=== PATIENT | male | born 1930 | race Caucasian/White ===

== ENCOUNTER → 2017-08-04 | Outpatient (CLI) | payer MEDICARE, BC ==
[2017-08-04 16:43] LABS: Basophils # (auto) 0 uL; Basophils % (auto) 0.5 % (0.0-2.0); Eosinophils # (auto) 0.1 uL; Eosinophils % (auto) 0.9 % (0.0-7.0); Hemoglobin 15.2 g/dL (13.5-17.5); Lymphocytes # (auto) 1.5 uL; Lymphocytes % (auto) 14.9 % (10.0-50.0); Mean Corpuscular Hemoglobin 29.1 pg (28.0-32.0); Mean Corpuscular Hgb Conc. 33.8 g/dL (32.0-36.0); Mean Corpuscular Volume 86.1 fL (80.0-100.0); Neutrophils # (auto) 7.3 uL; Neutrophils % (auto) 73.7 % (37.0-80.0); Nucleated Red Blood Cells % 0.1 %; Platelet Count (auto) 230 10^3/uL (140-450); Red Blood Cells 5.23 10^6/uL (4.5-5.90); Red Cell Distribution Width 13.3 % (11.8-14.3)
[2017-08-04 17:05] LABS: Albumin 3.8 g/dL (3.4-5.0); BUN/Creatinine Ratio 12.4; Bilirubin, Total 1.7 mg/dL (0.2-1.0); Calcium 8.9 mg/dL (8.5-10.1); Potassium 3.1 mmol/L (3.5-5.1); Total Protein 8.1 g/dL (6.4-8.2)
[2017-08-04 17:07] LABS: Free T4 (Free Thyroxine) 1.21 ng/dL (0.89-1.76); Prostate Specific Antigen 0.68 ng/mL (0.0-4.0)
== END | disposition home or self-care (01) ==
LOC: LAB 16:16
PROVIDERS: ATTEND Internal Medicine
DX: R41.89 Other symptoms and signs involving cognitive functions and awareness (principal); K59.00 Constipation, unspecified; N40.1 Benign prostatic hyperplasia with lower urinary tract symptoms
CPT/HCPCS: 36415; 80053; 82607; 84153; 84439; 84443; 85025

== ENCOUNTER → 2017-10-21 | Outpatient (CLI) | payer MEDICARE, BC ==
[2017-10-21 14:00] LABS: Basophils # (auto) 0.1 uL; Basophils % (auto) 1.1 % (0.0-2.0); Eosinophils # (auto) 0.2 uL; Eosinophils % (auto) 2.8 % (0.0-7.0); Hemoglobin 15.4 g/dL (13.5-17.5); Lymphocytes # (auto) 1.7 uL; Lymphocytes % (auto) 24.5 % (10.0-50.0); Mean Corpuscular Hemoglobin 28.7 pg (28.0-32.0); Mean Corpuscular Hgb Conc. 34.1 g/dL (32.0-36.0); Mean Corpuscular Volume 84.3 fL (80.0-100.0); Monocytes # (auto) 0.8 uL; Monocytes % (auto) 11.1 % (0.0-12.0); Neutrophils # (auto) 4.2 uL; Neutrophils % (auto) 60.5 % (37.0-80.0); Nucleated Red Blood Cells % 0.1 %; Platelet Count (auto) 229 10^3/uL (140-450); Red Blood Cells 5.34 10^6/uL (4.5-5.90); Red Cell Distribution Width 14.1 % (11.8-14.3); White Blood Cell 6.9 10^3/uL (4.4-10.8)
[2017-10-21 14:21] LABS: Albumin 3.7 g/dL (3.4-5.0); BUN/Creatinine Ratio 15.9; Calcium 9.1 mg/dL (8.5-10.1); Potassium 3.4 mmol/L (3.5-5.1)
[2017-10-21 14:24] LABS: Bilirubin, Total 1.1 mg/dL (0.2-1.0); Total Protein 7.5 g/dL (6.4-8.2)
== END | disposition home or self-care (01) ==
LOC: LAB 13:39
PROVIDERS: ATTEND Internal Medicine
DX: I12.9 Hypertensive chronic kidney disease with stage 1 through stage 4 chronic kidney disease, or unspecified chronic kidney disease (principal); N18.3 Chronic kidney disease, stage 3 (moderate); E03.9 Hypothyroidism, unspecified
CPT/HCPCS: 36415; 80053; 84439; 84443; 85025

== ENCOUNTER → 2018-03-13 | Outpatient (CLI) | payer MEDICARE, BC ==
[2018-03-13 08:49] LABS: Basophils # (auto) 0.1 uL; Eosinophils # (auto) 0.4 uL; Eosinophils % (auto) 4.4 % (0.0-7.0); Hematocrit 47.7 % (41.0-53.0); Hemoglobin 16.2 g/dL (13.5-17.5); Lymphocytes # (auto) 1.9 uL; Lymphocytes % (auto) 22.2 % (10.0-50.0); Mean Corpuscular Hgb Conc. 34.1 g/dL (32.0-36.0); Mean Corpuscular Volume 85.2 fL (80.0-100.0); Monocytes # (auto) 0.9 uL; Monocytes % (auto) 10.6 % (0.0-12.0); Neutrophils # (auto) 5.2 uL; Neutrophils % (auto) 61.8 % (37.0-80.0); Nucleated Red Blood Cells % 0.1 %; Platelet Count (auto) 208 10^3/uL (140-450); Red Cell Distribution Width 13.9 % (11.8-14.3); White Blood Cell 8.4 10^3/uL (4.4-10.8)
[2018-03-13 09:32] LABS: Albumin 3.7 g/dL (3.4-5.0); Calcium 9.1 mg/dL (8.5-10.1); Potassium 3.7 mmol/L (3.5-5.1)
[2018-03-13 09:39] LABS: BUN/Creatinine Ratio 18.9; Bilirubin, Total 0.9 mg/dL (0.2-1.0); Total Protein 7.5 g/dL (6.4-8.2)
== END | disposition home or self-care (01) ==
LOC: LAB 08:26
PROVIDERS: ATTEND Internal Medicine
DX: I12.9 Hypertensive chronic kidney disease with stage 1 through stage 4 chronic kidney disease, or unspecified chronic kidney disease (principal); N18.3 Chronic kidney disease, stage 3 (moderate); E03.9 Hypothyroidism, unspecified
CPT/HCPCS: 36415; 80053; 80061; 84439; 84443; 85025

== ENCOUNTER → 2018-07-01 | Outpatient (CLI) | payer MEDICARE, BC ==
[~2018-07-01] MED LIST: ASPI81TA27 PO; CIPR-217 PO; DOCU100T15 PO; GABA100C9 PO; HYDR25TA4 PO; LACT10SO3 PO; LEVO25TA6 PO; METO25TA62 PO; PANT40T PO; POTA10TA51 PO; TAMS0.4C36 PO
[2018-07-01 11:28] LABS: Basophils # (auto) 0 uL; Basophils % (auto) 0.7 % (0.0-2.0); Eosinophils # (auto) 0.4 uL; Eosinophils % (auto) 5.4 % (0.0-7.0); Hematocrit 34.4 % (41.0-53.0); Hemoglobin 11.7 g/dL (13.5-17.5); Lymphocytes # (auto) 1.2 uL; Lymphocytes % (auto) 17.9 % (10.0-50.0); Mean Corpuscular Hemoglobin 29.4 pg (28.0-32.0); Mean Corpuscular Hgb Conc. 33.9 g/dL (32.0-36.0); Mean Corpuscular Volume 86.6 fL (80.0-100.0); Monocytes # (auto) 0.6 uL; Monocytes % (auto) 9.3 % (0.0-12.0); Neutrophils # (auto) 4.4 uL; Neutrophils % (auto) 66.7 % (37.0-80.0); Platelet Count (auto) 211 10^3/uL (140-450); Red Blood Cells 3.97 10^6/uL (4.5-5.90); Red Cell Distribution Width 13.8 % (11.8-14.3); White Blood Cell 6.6 10^3/uL (4.4-10.8)
== END | disposition home or self-care (01) ==
LOC: LAB 10:47
PROVIDERS: ATTEND Internal Medicine
DX: D64.9 Anemia, unspecified (principal)
CPT/HCPCS: 36415; 85025

== ENCOUNTER → 2018-11-24 | Outpatient (CLI) | payer MEDICARE, BC ==
[~2018-11-24] MED LIST changes: +ASPI-404 PO; -ASPI81TA27 PO
[2018-11-24 14:29] LABS: Basophils # (auto) 0 uL; Basophils % (auto) 0.7 % (0.0-2.0); Eosinophils # (auto) 0.2 uL; Eosinophils % (auto) 2.8 % (0.0-7.0); Hematocrit 45.2 % (41.0-53.0); Hemoglobin 15.3 g/dL (13.5-17.5); Lymphocytes # (auto) 1.3 uL; Lymphocytes % (auto) 18.7 % (10.0-50.0); Mean Corpuscular Hemoglobin 29.2 pg (28.0-32.0); Mean Corpuscular Hgb Conc. 33.7 g/dL (32.0-36.0); Mean Corpuscular Volume 86.4 fL (80.0-100.0); Monocytes # (auto) 0.9 uL; Monocytes % (auto) 12.6 % (0.0-12.0); Neutrophils # (auto) 4.6 uL; Neutrophils % (auto) 65.2 % (37.0-80.0); Nucleated Red Blood Cells % 0.2 %; Platelet Count (auto) 194 10^3/uL (140-450); Red Blood Cells 5.23 10^6/uL (4.5-5.90)
[2018-11-24 14:49] LABS: Albumin 3.6 g/dL (3.4-5.0); BUN/Creatinine Ratio 17.3; Potassium 3.3 mmol/L (3.5-5.1); Uric Acid 7.9 mg/dL (3.5-7.2)
[2018-11-24 14:51] LABS: Bilirubin, Total 1.2 mg/dL (0.2-1.0); Total Protein 7.1 g/dL (6.4-8.2)
== END | disposition home or self-care (01) ==
LOC: LAB 14:08
PROVIDERS: ATTEND Internal Medicine
DX: I12.9 Hypertensive chronic kidney disease with stage 1 through stage 4 chronic kidney disease, or unspecified chronic kidney disease (principal); N18.3 Chronic kidney disease, stage 3 (moderate)
CPT/HCPCS: 36415; 80053; 84550; 85025

== ENCOUNTER 2018-12-16 14:40 | Inpatient (IN) | payer MEDICARE, OTHER ==
[~2018-12-16] VITALS: Ht 170.2 cm; Wt 70.9 kg
[2018-12-16 14:59] LABS: Basophils # (auto) 0 uL; Basophils % (auto) 0.5 % (0.0-2.0); Eosinophils # (auto) 0 uL; Eosinophils % (auto) 0.2 % (0.0-7.0); Hematocrit 44.8 % (41.0-53.0); Hemoglobin 15.2 g/dL (13.5-17.5); Lymphocytes # (auto) 0.4 uL; Lymphocytes % (auto) 3.8 % (10.0-50.0); Mean Corpuscular Hemoglobin 29.6 pg (28.0-32.0); Mean Corpuscular Hgb Conc. 33.8 g/dL (32.0-36.0); Mean Corpuscular Volume 87.6 fL (80.0-100.0); Monocytes # (auto) 0.6 uL; Monocytes % (auto) 6.2 % (0.0-12.0); Neutrophils # (auto) 9.4 uL; Neutrophils % (auto) 89.3 % (37.0-80.0); Nucleated Red Blood Cells % 0.1 %; Platelet Count (auto) 172 10^3/uL (140-450); Red Blood Cells 5.11 10^6/uL (4.5-5.90); Red Cell Distribution Width 14.1 % (11.8-14.3); White Blood Cell 10.5 10^3/uL (4.4-10.8)
[2018-12-16 15:21] LABS: Alanine Aminotransferase 18 U/L (16-61); Albumin 3.8 g/dL (3.4-5.0); Anion Gap 9 (5-15); Aspartate Aminotransferase 22 U/L (15-37); BUN/Creatinine Ratio 14.1; Blood Urea Nitrogen 22 mg/dL (7-18); Calcium 8.5 mg/dL (8.5-10.1); Carbon Dioxide 30 mmol/L (21-32); Chloride 92 mmol/L (98-107); GFR African American 54 mL/min; GFR Non-African American 45 mL/min; Glucose 137 mg/dL (74-106); Sodium 131 mmol/L (136-145)
[2018-12-16 15:26] LABS: Alkaline Phosphatase 79 U/L (45-117); Bilirubin, Total 1.9 mg/dL (0.2-1.0); Total Protein 7.5 g/dL (6.4-8.2)
[2018-12-16] MEDS ORDERED: SODIUM CHLORIDE 0.9% 1,000 ML IVB ONE (17:26)
[2018-12-16] MEDS ORDERED: POTASSIUM CHL 20 Meq TABLET PO ONE (17:30)
[2018-12-16 18:38] LABS: Urine Bacteria FEW /hpf (None Seen); Urine Blood TRACE /uL (Negative); Urine Mucus FEW (None Seen); Urine Specific Gravity 1.016 (1.001-1.035); Urine WBC 136 /hpf (0 - 3)
[2018-12-16] MEDS ORDERED: cefTRIAXone 1GM/50ML D5W 50 ML IV ONE (20:00)
[2018-12-16] MEDS ORDERED: TEMAZEPAM 15 MG CAP PO PRN (21:15)
[2018-12-16] MEDS ORDERED: ACETAMINOPHEN 325 MG TAB PO PRN (21:15)
[2018-12-16] MEDS ORDERED: MORPHINE SULF INJ 2 MG/ML SYRINGE 1ML IV PRN (21:15)
[2018-12-16] MEDS ORDERED: NITROGLYCERIN 0.4 MG SL TAB SL PRN (21:15)
[2018-12-16] MEDS ORDERED: HYDROcodone-ACET 5/325MG TAB PO PRN (21:15)
[2018-12-16] MEDS ORDERED: ONDANSETRON HCL 4 MG/2 ML VIAL IV PRN (21:15)
[2018-12-16] MEDS: DOCUSATE SOD 100 MG CAP PO SCH (23:00)
[2018-12-16] MEDS: GABAPENTIN 100 MG CAP PO SCH (23:00)
[2018-12-16 23:30] VITALS: BP 128/65
[2018-12-16 23:41] VITALS: BP 128/65
--- NOTE | 2018-12-17 00:05 | NUR ---
MS admit from ED. pt arrived via stretcher awake, alert and oriented x4. pt on room air no distress noted or expressed. pt denies any pain. pt oriented to this nurse, the room, bed controls, call light and given urinal. pt informed of plan of care, no questions at this time. pt bed locked, low and 2x rails up. pt encouraged to call as needed, in addition to if pt needs to move for any reason, to which pt agreed. call light in reach. pt has cane at bedside. anti slip socks given to pt and bed alarm activated, urinal in reach. will round q1hr and prn.
[2018-12-17 05:40] VITALS: BP 131/63
[2018-12-17] MEDS ORDERED: LEVOTHYROXINE SODIUM 25 MCG TAB PO SCH (07:00)
[2018-12-17 07:53] LABS: Calcium 8.5 mg/dL (8.5-10.1); Potassium 3.2 mmol/L (3.5-5.1)
[2018-12-17 07:58] LABS: BUN/Creatinine Ratio 14.6
--- NOTE | 2018-12-17 08:00 | NUR ---
ASSESSMENT NOTE PATIENT IS ALERT ORIENTED X4, RESTING IN BED COMFORTABLY, NO DISTRESS NOTED, ABLE TO SELF REPOSITION AND VERBALIS HIS DEMANDS, PAIN 0/10, USE URINAL NEEDED, ON FALL RISK PRECAUTIONS, CALL LIGHT WITHIN REACH.
[2018-12-17 09:00] VITALS: BP 122/67
[2018-12-17] MEDS: GABAPENTIN 100 MG CAP PO SCH (09:14)
[2018-12-17] MEDS: ASPirin 81 mg TAB PO SCH (09:14)
[2018-12-17] MEDS: cefTRIAXone 1GM/50ML D5W 50 ML IV SCH (09:15)
[2018-12-17] MEDS: PANTOPRAZOLE 40 MG TAB PO SCH (09:15)
[2018-12-17] MEDS: DOCUSATE SOD 100 MG CAP PO SCH (09:27)
[2018-12-17] MEDS ORDERED: POTASSIUM CHL 10 Meq TABLET PO SCH (10:00)
--- NOTE | 2018-12-17 11:30 | NUR ---
IV removal and Insertion Left hand IV leaking, removed with catheter tip intact and applied dressing. Inserted 20g IV to the left forearm, received blood flashback and flushed with normal saline. Patient tolerated well.
--- NOTE | 2018-12-17 12:00 | NUR ---
URINE SAMPLE SENT TO LAB
--- NOTE | 2018-12-17 12:00 | NUR ---
DR JOHNSTON AT BED SIDE FOLLOWING UP ON PT WITH NEW ORDERS
[2018-12-17] MEDS: SODIUM CHLORIDE 0.9% 1,000 ML IV SCH (12:15)
[2018-12-17] MEDS ORDERED: POTASSIUM CHL 20 Meq TABLET PO ONE (12:45)
[2018-12-17 13:00] VITALS: BP 136/64
--- NOTE | 2018-12-17 14:47 | NUR ---
Lab result Lab Result Patient potassium level 3.2. Called Dr. Cordoba, new order for potassium 20meq ONCE today and daily starting tomorrow, 12/18/18. Verified order by read back
[2018-12-17 16:46] VITALS: BP 150/64
[2018-12-17] MEDS: METOPROLOL SUCCINATE XL 50 MG TAB PO SCH (16:59)
[2018-12-17] MEDS: HCTZ 25 MG TAB PO SCH (16:59)
--- NOTE | 2018-12-17 17:01 | NUR ---
FAMILY PATIENT'S BEST FRIEND AT BED SIDE
[2018-12-17] MEDS ORDERED: TAMSULOSIN HYDROCHLORIDE 0.4 MG CAP PO SCH (18:00)
[2018-12-17 20:00] VITALS: BP 150/64
[2018-12-17 22:00] VITALS: BP 148/71
[2018-12-18 05:40] VITALS: BP 120/63
[2018-12-18 06:13] LABS: Basophils # (auto) 0.1 uL; Basophils % (auto) 0.7 % (0.0-2.0); Eosinophils # (auto) 0.4 uL; Hematocrit 44.1 % (41.0-53.0); Hemoglobin 15.1 g/dL (13.5-17.5); Lymphocytes # (auto) 1.1 uL; Lymphocytes % (auto) 12.5 % (10.0-50.0); Mean Corpuscular Hemoglobin 30.2 pg (28.0-32.0); Mean Corpuscular Hgb Conc. 34.2 g/dL (32.0-36.0); Mean Corpuscular Volume 88.3 fL (80.0-100.0); Monocytes % (auto) 11.4 % (0.0-12.0); Neutrophils # (auto) 6.3 uL; Neutrophils % (auto) 71.4 % (37.0-80.0); Platelet Count (auto) 155 10^3/uL (140-450); Red Blood Cells 4.99 10^6/uL (4.5-5.90); Red Cell Distribution Width 13.9 % (11.8-14.3); White Blood Cell 8.8 10^3/uL (4.4-10.8)
[2018-12-18 06:40] LABS: Albumin 3.1 g/dL (3.4-5.0); Calcium 8.6 mg/dL (8.5-10.1); Potassium 3.6 mmol/L (3.5-5.1)
[2018-12-18 06:42] LABS: BUN/Creatinine Ratio 15.1
[2018-12-18 06:44] LABS: Bilirubin, Total 1.2 mg/dL (0.2-1.0); Total Protein 6.5 g/dL (6.4-8.2)
--- NOTE | 2018-12-18 07:30 | NUR ---
OPENING SHIFT NOTE PATIENT RESTING IN BED SEMI FOWLERS. RESPIRATIONS EVEN AND UNLABORED. NO S/S OF DISTRESS NOTED AT THIS TIME. PATIENT DENIES ANY PAIN AT THIS TIME. PATIENT A&OX4. PATIENT AMBULATING WELL ON HIS OWN. INSTRUCTED TO CALL NURSE BEFORE AMBULATION. FALL PRECUATIONS IN PLACE PER HOSPITAL POLICY. PATIENT UPDATED ON POC. ALL QUESTIONS ANSWERED. WILL CONTINUE CARE.
[2018-12-18] MEDS: SODIUM CHLORIDE 0.9% 1,000 ML IV SCH (08:15)
[2018-12-18 09:00] VITALS: BP 121/62
[2018-12-18] MEDS: PANTOPRAZOLE 40 MG TAB PO SCH (09:36)
[2018-12-18] MEDS: ASPirin 81 mg TAB PO SCH (09:36)
[2018-12-18] MEDS: GABAPENTIN 100 MG CAP PO SCH (09:37)
[2018-12-18] MEDS: HCTZ 25 MG TAB PO SCH (09:38)
[2018-12-18] MEDS: METOPROLOL SUCCINATE XL 50 MG TAB PO SCH (09:39)
[2018-12-18] MEDS: cefTRIAXone 1GM/50ML D5W 50 ML IV SCH (09:40)
[2018-12-18] MEDS: DOCUSATE SOD 100 MG CAP PO SCH (09:40)
[2018-12-18] MEDS ORDERED: POTASSIUM CHL 20 Meq TABLET PO SCH (10:00)
--- NOTE | 2018-12-18 10:00 | NUR ---
Leonardo JOHNSTON AT BEDSIDE. AWARE OF PATIENT STATUS. INFORMED PATIENT OF DISCHARGE. PATIENT AGREEABLE. WILL FOLLOW THROUGH.
--- NOTE | 2018-12-18 14:00 | NUR ---
Discharge instructions given as ordered. Encourage to follow up with PMD as instructed. All questions and concerns addressed. Patient verbalized understanding. Home medications held in Pharmacy returned to patient, and needed vaccines given. IV removed with catheter intact, pressure dressing applied, frias catheter removed. Telemetry unit returned to ICU. Patient taken to vehicle via wheelchair with all personal belongings, accompanied by staff and family member. No distress noted at time of departure. Addendum: 12/18/18 at 1420 by AYAZ BRIGHT RN RN DISREGARD SECTION REGARDING TELEMETRY AND HOME MEDICATION. NO HOME MEDICATIONS HELD, NO VACCINES WERE GIVEN AND NO FRIAS IN PLACE TO DC.
--- NOTE | 2018-12-18 14:41 | NUR ---
assessment re: ss consult Patient is a 88 year old male who is alert and oriented. Patients cognitive abilities are intact. Prior to admission patient lived home alone and functioned independently. Patient informed me he is able to care for his own ADLs. Per patient he will return home to his prior living arrangements post discharge and family will transport him home. Per patient he has a cane and fww for home use. Patients PCP is Dr Pope. Patient feels safe returning home on discharge. Patient has no post discharge needs at this time. I informed patient he has a ss consult for placement. Patient refused placement and wants to return home. Patient informed me he felt weak and called 911. Patient informed me he feels fine now and can care for himself. I informed patient he has a right to speak to a social media marketing specialist regarding all care. I informed patient he has a right to participate in any and all discharge planning. Patient is aware of visiting hours on the hospital floor. I informed patient he has a right to privacy. Patient does not have a POA and advanced directive. I have offered patient information on POA and advanced directives. I informed the patient the advantages and benefits of having an Advanced Directive. Patient verbalized understanding and agreed to discharge plan. Addendum: 12/18/18 at 1443 by Hannah MCCANN Amended: Links added.
== END 2018-12-18 14:00 | disposition home or self-care (01) | DRG 871 ==
LOC: ER 14:40 → OVERFLOW 14:41 → CENTRAL 22:27
PROVIDERS: ADMIT Nurse Practitioner; ATTEND Family Medicine
DX: A41.9 Sepsis, unspecified organism (principal); G93.41 Metabolic encephalopathy; N39.0 Urinary tract infection, site not specified; I50.42 Chronic combined systolic (congestive) and diastolic (congestive) heart failure; I13.0 Hypertensive heart and chronic kidney disease with heart failure and stage 1 through stage 4 chronic kidney disease, or unspecified chronic kidney disease; E87.1 Hypo-osmolality and hyponatremia; N18.3 Chronic kidney disease, stage 3 (moderate); N40.0 Benign prostatic hyperplasia without lower urinary tract symptoms; R62.7 Adult failure to thrive; E03.9 Hypothyroidism, unspecified; E86.0 Dehydration; E87.6 Hypokalemia; G62.9 Polyneuropathy, unspecified; I25.10 Atherosclerotic heart disease of native coronary artery without angina pectoris; Z95.0 Presence of cardiac pacemaker
CPT/HCPCS: 36415; 71045; 80048; 80053; 81001; 83735; 83880; 84443; 84484; 85025; 87040; 87086; 87186; 93005; 94761; 96361; 96365; G0378; J0696

== ENCOUNTER → 2019-01-12 | Outpatient (CLI) | payer MEDICARE, OTHER ==
[2019-01-12 10:25] LABS: BUN/Creatinine Ratio 13.1; Calcium 8.9 mg/dL (8.5-10.1); Potassium 3.2 mmol/L (3.5-5.1)
== END | disposition home or self-care (01) ==
LOC: LAB 09:48
PROVIDERS: ATTEND Internal Medicine
DX: E87.6 Hypokalemia (principal)
CPT/HCPCS: 36415; 80048

== ENCOUNTER 2019-01-28 07:22 | Emergency (ER) | payer MEDICARE, OTHER ==
[~2019-01-28] VITALS: Ht 170.2 cm; Wt 65.8 kg
[2019-01-28 07:48] VITALS: BP 121/45
== END 2019-01-28 08:46 | disposition home or self-care (01) ==
LOC: ER 07:22
DX: S41.111A Laceration without foreign body of right upper arm, initial encounter (principal); I10 Essential (primary) hypertension; Z87.891 Personal history of nicotine dependence; Z79.899 Other long term (current) drug therapy; Z95.0 Presence of cardiac pacemaker; W18.39XA Other fall on same level, initial encounter; Y93.89 Activity, other specified; Y92.098 Other place in other non-institutional residence as the place of occurrence of the external cause; Y99.8 Other external cause status

== ENCOUNTER 2019-03-10 18:39 | Emergency (ER) | payer MEDICARE, OTHER ==
[~2019-03-10] VITALS: Ht 170.2 cm; Wt 65.8 kg
[~2019-03-10 18:39] MED LIST changes: -CIPR-217 PO; +CIPR500T4 PO; -METO25TA62 PO; +METO25TA93 PO
[2019-03-10] MEDS ORDERED: EPINEPHrine HCL 1 MG/10 ML SYRG IV ONE (18:42)
[2019-03-10 19:00] VITALS: BP 147/75
[2019-03-10] MEDS ORDERED: ASPirin 325 MG TAB ONE (19:02)
[2019-03-10] MEDS ORDERED: HEPARIN SODIUM (PORCINE) 5000 UNITS/ML 1ML VIAL ONE (19:05)
[2019-03-10 19:08] LABS: Basophils # (auto) 0.1 uL; Basophils % (auto) 0.8 % (0.0-2.0); Eosinophils # (auto) 0.2 uL; Eosinophils % (auto) 2.6 % (0.0-7.0); Hemoglobin 16.3 g/dL (13.5-17.5); Lymphocytes # (auto) 1.7 uL; Lymphocytes % (auto) 21.6 % (10.0-50.0); Mean Corpuscular Hemoglobin 29.6 pg (28.0-32.0); Mean Corpuscular Hgb Conc. 33.9 g/dL (32.0-36.0); Mean Corpuscular Volume 87.3 fL (80.0-100.0); Monocytes # (auto) 0.9 uL; Monocytes % (auto) 12.2 % (0.0-12.0); Neutrophils # (auto) 4.9 uL; Neutrophils % (auto) 62.8 % (37.0-80.0); Nucleated Red Blood Cells % 0.1 %; Platelet Count (auto) 188 10^3/uL (140-450); Red Blood Cells 5.51 10^6/uL (4.5-5.90); Red Cell Distribution Width 13.2 % (11.8-14.3); White Blood Cell 7.7 10^3/uL (4.4-10.8)
[2019-03-10] MEDS ORDERED: HEPARIN SODIUM (PORCINE) 5000 UNITS/ML 1ML VIAL IV ONE (19:15)
[2019-03-10] MEDS ORDERED: ASPirin 325 MG TAB PO ONE (19:15)
[2019-03-10] MEDS ORDERED: LIDOCAINE 2%HCL (LOCAL ANESTH.) INJ 20ML MDV ONE (19:18)
[2019-03-10] MEDS ORDERED: IODIXANOL 320MG/ML 100ML BTL IV ONE (19:18)
[2019-03-10 19:23] LABS: Partial Thromboplastin Time 24.8 sec (23.64-32.05)
[2019-03-10] MEDS ORDERED: ATROPINE SULF 1 MG/10ml SYR ONE (19:28)
[2019-03-10] MEDS ORDERED: DOPamine 1600MCG/ML D5W 0 ML IV ONE (19:29)
[2019-03-10] MEDS ORDERED: NOREPINEPHRINE 8 MG/250ML KIT 0 ML IV ONE (19:29)
[2019-03-10] MEDS ORDERED: fentaNYL CITRATE 100 MCG/2 ML VL ONE (19:29)
[2019-03-10] MEDS ORDERED: EPINEPHrine HCL 1 MG/10 ML SYRG ONE ×2 (19:29)
[2019-03-10] MEDS ORDERED: MIDAZOLAM HCL 1MG/1ML-2 ML VIAL ONE (19:29)
[2019-03-10] MEDS ORDERED: ANGIOMAX 250 MG VIAL IV ONE (19:29)
[2019-03-10 19:30] LABS: Albumin 3.8 g/dL (3.4-5.0); BUN/Creatinine Ratio 16.2; Calcium 9.8 mg/dL (8.5-10.1); Potassium 3.8 mmol/L (3.5-5.1)
[2019-03-10] MEDS ORDERED: SODIUM CHL 0.9% 0 ML ONE (19:30)
[2019-03-10 19:35] LABS: Total Protein 8.1 g/dL (6.4-8.2)
== END 2019-03-11 01:38 | disposition expired ==
LOC: ER 18:41
DX: I21.9 Acute myocardial infarction, unspecified (principal); I25.10 Atherosclerotic heart disease of native coronary artery without angina pectoris; I10 Essential (primary) hypertension; E07.9 Disorder of thyroid, unspecified
CPT/HCPCS: 31500; 36415; 71045; 80053; 84484; 85025; 85610; 85730; 92950; 92960; 93005; 99285; C1887; C1894; J0171; J1644; Q9967; 99291; J2250